=== PATIENT | male | born 1950 | race Caucasian/White ===

== ENCOUNTER 2018-02-03 12:03 | Emergency (ER) | payer OTHER ==
[2018-02-03] MEDS ORDERED: NS 1,000 ML IV ONE (12:24)
--- NOTE | 2018-02-03 12:31 | EDPHY ---
H & P Time Seen by Provider: 02/03/18 12:24 HPI/ROS: CHIEF COMPLAINT: Full body tingling HISTORY OF PRESENT ILLNESS: Patient is a 67-year-old man who is visiting from out of town who was driving in [place] when he suddenly felt like his whole body was tingling. He asked his to start driving. He denies chest pain or shortness of breath. He denies headache. They thought maybe he was having a stroke but he did not have any focal weakness or deficits. No slurred speech. He denies intentional accidental marijuana or alcohol ingestion or other substances. He has a history of hypertension the. Vital signs are stable other than hypertension. They presented to an urgent care where EMS was called. EMS felt that his symptoms had resolved. However on my evaluation he continues to complain of paresthesias in all of his extremities. He is moving slowly and kind of grimacing. Severity: Moderate Modifying factors: None REVIEW OF SYSTEMS: Constitutional: denies: chills, fever, recent illness, recent injury EENTM: denies: blurred vision, double vision, nose congestion Respiratory: denies: cough, shortness of breath Cardiac: denies: chest pain, irregular heart rate, lightheadedness, palpitations Gastrointestinal/Abdominal: denies: abdominal pain, diarrhea, nausea, vomiting, blood streaked stools Genitourinary: denies: dysuria, frequency, hematuria, pain Musculoskeletal: denies: joint pain, muscle pain Skin: denies: lesions, rash, jaundice, bruising Neurological: denies: headache, numbness, paresthesia, tingling, dizziness, weakness Hematologic/Lymphatic: denies: blood clots, easy bleeding, easy bruising Immunologic/allergic: denies: HIV/AIDS, transplant 10 systems reviewed and negative except as noted EXAM: GENERAL: Kind of grimacing, complains of diffuse tingling HEAD: Atraumatic, normocephalic. EYES: Pupils equal round and reactive to light, extraocular movements intact, sclera anicteric, conjunctiva are normal. ENT: TMs normal, nares patent, oropharynx clear without exudates. Moist mucous membranes. NECK: Normal range of motion, supple without lymphadenopathy or JVD. LUNGS: Breath sounds clear to auscultation bilaterally and equal. No wheezes rales or rhonchi. HEART: Regular rate and rhythm without murmurs, rubs or gallops. ABDOMEN: Soft, nontender, normoactive bowel sounds. No guarding, no rebound. No masses appreciated. BACK: No CVA tenderness, no spinal tenderness, step-offs or deformities EXTREMITIES: Slow movements, Normal range of motion, no pitting or edema. No clubbing or cyanosis. NEUROLOGICAL: Cranial nerves II through XII grossly intact. Normal speech, normal gait. 5/5 strength, normal movement in all extremities, normal sensation , normal reflexes PSYCH: Normal mood, normal affect. SKIN: Warm, dry, normal turgor, no visible rashes or lesions. Source: Patient, Family, EMS Constitutional: Initial Vital Signs Temperature (C) 36.7 C 02/03/18 12:28 Heart Rate 103 H 02/03/18 12:28 Respiratory Rate 18 02/03/18 12:28 Blood Pressure 169/93 H 02/03/18 12:28 O2 Sat (%) 95 02/03/18 12:28 O2 Delivery Mode Room Air Allergies/Adverse Reactions: amoxicillin Allergy (Verified 02/03/18 12:34) Home Medications: Medication Instructions Recorded Unobtainable 02/03/18 Medical Decision Making - Diagnostics EKG Interpretation: An EKG obtained and was read and documented in trace view. Please see trace view for full reading and report. Sinus tachycardia, no acute ischemic changes Imaging Results: Imaging Impressions Chest X-Ray 02/03/18 12:25 Impression: Moderate cardiac enlargement. Bibasilar atelectasis. Head CT 02/03/18 12:25 Impression: 1. No acute intracranial findings. If symptoms persist and clinical suspicion warrants, consider MRI. 2. Sinus disease, with possible acute on chronic sinusitis, with apparent erosion of the medial wall of the left maxillary sinus. 3. Diffuse cerebral atrophy with periventricular and subcortical low attenuation consistent with chronic microvascular ischemic gliosis. Findings discussed with LUIS ARIZMENDI 02/03/2018 at 13:13. Imaging: Discussed imaging studies w/ manager call center Radiologist ED Course/Re-evaluation: After family was able to call friends they state that there was a double marijuana chocolate on the counter that the patient ate and it was not aware. 1:30 p.m. the patient is feeling completely better. His family feels comfortable taking him home. They declined further workup or testing. They are eager to go home. Differential Diagnosis: Partial list of the Differential diagnosis considered include but were not limited to; intoxication, CVA, acute coronary disease and although unlikely based on the history and physical exam, I also considered PE, infection. I discussed these differential diagnoses and the plan with the patient as well as the usual and expected course. The patient understands that the diagnosis is provisional and that in medicine we are not always correct and that further workup is often warranted. Usual and customary warnings were given. All of the patient's questions were answered. The patient was instructed to return to the emergency department should the symptoms at all worsen or return, otherwise to followup with the physician as we discussed. - Data Points Laboratory Results: Laboratory Results 02/03/18 12:13 02/03/18 12:13 02/03/18 02/03/18 02/03/18 12:17 12:13 12:13 WBC RBC Hgb Hct MCV MCH MCHC RDW Plt Count MPV Neut % (Auto) Lymph % (Auto) Charlton % (Auto) Eos % (Auto) Baso % (Auto) Nucleat RBC Rel Count Absolute Neuts (auto) Absolute Lymphs (auto) Absolute Monos (auto) Absolute Eos (auto) Absolute Basos (auto) Absolute Nucleated RBC Immature Gran % Immature Gran # Platelet Estimate PT 13.7 SEC SEC (12.0-15.0) INR 1.03 (0.83-1.16) APTT 26.8 SEC SEC (23.0-38.0) Sodium 139 mEq/L mEq/L (135-145) Potassium 4.2 mEq/L mEq/L (3.3-5.0) Chloride 106 mEq/L mEq/L (97-110) Carbon Dioxide 19 mEq/l L mEq/l (22-31) Anion Gap 14 mEq/L mEq/L (8-16) BUN 25 mg/dL H mg/dL (7-23) Creatinine 1.0 mg/dL mg/dL (0.7-1.3) Estimated GFR > 60 Glucose 112 mg/dL H mg/dL (70-100) Calcium 9.6 mg/dL mg/dL (8.5-10.4) Total Bilirubin 0.7 mg/dL mg/dL (0.1-1.4) Conjugated Bilirubin 0.2 mg/dL mg/dL (0.0-0.5) Unconjugated Bilirubin 0.5 mg/dL mg/dL (0.0-1.1) AST 52 IU/L IU/L (17-59) ALT 76 IU/L H IU/L (21-72) Alkaline Phosphatase 73 IU/L IU/L (38-126) POC Troponin I 0.00 ng/mL ng/mL (0.00-0.08) Total Protein 7.5 g/dL g/dL (6.3-8.2) Albumin 4.9 g/dL g/dL (3.5-5.0) Lipase 108 IU/L IU/L (23-300) Ethyl Alcohol < 10 mg/dL mg/dL (0-10) 02/03/18 12:13 WBC 9.02 10^3/uL 10^3/uL (3.80-9.50) RBC 4.83 10^6/uL 10^6/uL (4.40-6.38) Hgb 14.0 g/dL g/dL (13.7-17.5) Hct 40.5 % % (40.0-51.0) MCV 83.9 fL fL (81.5-99.8) MCH 29.0 pg pg (27.9-34.1) MCHC 34.6 g/dL g/dL (32.4-36.7) RDW 15.0 % % (11.5-15.2) Plt Count 185 10^3/uL 10^3/uL (150-400) MPV 12.8 fL H fL (8.7-11.7) Neut % (Auto) 45.2 % % (39.3-74.2) Lymph % (Auto) 36.0 % % (15.0-45.0) Charlton % (Auto) 8.1 % % (4.5-13.0) Eos % (Auto) 8.2 % H % (0.6-7.6) Baso % (Auto) 0.9 % % (0.3-1.7) Nucleat RBC Rel Count 0.0 % % (0.0-0.2) Absolute Neuts (auto) 4.08 10^3/uL 10^3/uL (1.70-6.50) Absolute Lymphs (auto) 3.25 10^3/uL H 10^3/uL (1.00-3.00) Absolute Monos (auto) 0.73 10^3/uL 10^3/uL (0.30-0.80) Absolute Eos (auto) 0.74 10^3/uL H 10^3/uL (0.03-0.40) Absolute Basos (auto) 0.08 10^3/uL 10^3/uL (0.02-0.10) Absolute Nucleated RBC 0.00 10^3/uL 10^3/uL (0-0.01) Immature Gran % 1.6 % H % (0.0-1.1) Immature Gran # 0.14 10^3/uL H 10^3/uL (0.00-0.10) Platelet Estimate ADEQUATE (ADEQ) PT INR APTT Sodium Potassium Chloride Carbon Dioxide Anion Gap BUN Creatinine Estimated GFR Glucose Calcium Total Bilirubin Conjugated Bilirubin Unconjugated Bilirubin AST ALT Alkaline Phosphatase POC Troponin I Total Protein Albumin Lipase Ethyl Alcohol Medications Given: Discontinued Medications Sodium Chloride (Ns) 1,000 mls @ 0 mls/hr IV EDNOW ONE; Wide Open PRN Reason: Protocol Stop: 02/03/18 12:25 Last Admin: 02/03/18 13:33 Dose: 1,000 mls Point of Care Test Results: Chemistry 02/03/18 12:17 POC Troponin I 0.00 ng/mL ng/mL (0.00-0.08) Departure - Departure Disposition: Home, Routine, Self-Care Clinical Impression: Accidental cannabis overdose Qualifiers: Encounter type: initial encounter Qualified Code(s): T40.7X1A - Poisoning by cannabis (derivatives), accidental (unintentional), initial encounter Condition: Fair Instructions: Acute Delirium (ED) Referrals: Patient,NotPresent [Unknown] - As per Instructions
--- NOTE | 2018-02-03 12:35 | CPEKG ---
Test Reason : OPEN Blood Pressure : / mmHG Vent. Rate : 128 BPM Atrial Rate : 128 BPM P-R Int : 167 ms QRS Dur : 077 ms QT Int : 293 ms P-R-T Axes : 038 -54 020 degrees QTc Int : 428 ms Sinus tachycardia Probable left atrial enlargement Inferior infarct, old Confirmed by Kurt Kirk ([id number] on 02/03/2018 12:34:39 PM Referred By: Confirmed By:Kurt Kirk
[2018-02-03 12:56] LABS: INR 1.03 (0.83-1.16); PROTIME(PATIENT) 13.7 SEC (12.0-15.0)
[2018-02-03 13:11] LABS: PLATELET COUNT 185 10^3/uL (150-400)
[2018-02-03 13:59] VITALS: BP 160/90
== END 2018-02-03 13:59 | disposition home or self-care (01) ==
DX: T40.7X1A Poisoning by cannabis (derivatives), accidental (unintentional), initial encounter (principal); R20.2 Paresthesia of skin; I10 Essential (primary) hypertension
CPT/HCPCS: 84484-PO; G0480